=== PATIENT | male | born 1960 | race Caucasian/White ===

== ENCOUNTER → 2017-06-24 | Outpatient (CLI) | payer OTHER ==
[~2017-06-24] MED LIST: DLC5 PO; LIDO5DIS10 TOP; OXYC-57 PO
[2017-06-24 17:45] LABS: BASO % 0.6 %; BASO ABS # 0.03 K/uL (0-0.2); EOS % 1.9 %; EOS ABS # 0.09 K/uL (0-0.5); HEMOGLOBIN 14.8 g/dL (14.0-18.0); LYMPH % 37.6 %; LYMPH ABS # 1.81 K/uL (1.2-3.4); MEAN CORPUSCULAR HGB CONC 34.4 g/dl (32-36); MEAN PLATELET VOLUME 10.5 fL (7.4-10.4); MONO % 14.7 %; MONO ABS # 0.71 K/uL (0.11-0.59); NEUT % 45.2 %; NEUT ABS # 2.18 K/uL (1.4-6.5); PLATELET COUNT 152 K/uL (130-400); RED CELL DISTRIBUTION WIDTH CV 13.8 % (11.5-14.5); RED CELL DISTRIBUTION WIDTH SD 43.9 fL (36.4-46.3); WHITE BLOOD COUNT 4.82 K/uL (4.8-10.8)
[2017-06-24 17:53] LABS: PTT PATIENT 25.7 SECONDS (21.0-31.0)
[2017-06-24 18:14] LABS: BLOOD UREA NITROGEN 24 mg/dl (7-18); CALCIUM 8.6 mg/dl (8.5-10.1); CARBON DIOXIDE 29 mmol/L (21-32); CREATININE 1.05 mg/dl (0.60-1.40); GLUCOSE 97 mg/dl (70-99); POTASSIUM 3.9 mmol/L (3.5-5.1); SODIUM 140 mmol/L (136-145)
--- NOTE | 2017-06-24 18:23 | DIAGNOSTIC IMAGING REPORT ---
CHEST 2 VIEWS ROUTINE CLINICAL HISTORY: 57 years-old Male presenting with PRE OP TESTING,WENT TO LAB FIRST, SEND TO [facility]. TECHNIQUE: PA and lateral views of the chest were obtained. COMPARISON: 02/11/2009. FINDINGS: Cardiomediastinal silhouette normal. Lungs and pleural spaces clear. Apparent nodular opacity at the right apex may relate to rib shadows. Degenerative changes of the thoracic spine. Old right rib fractures suspected. Degenerative changes of the bilateral acromioclavicular joints. Upper abdomen normal. IMPRESSION: 1. Apparent opacity at the right apex likely relates to a rib shadow. No convincing evidence of acute cardiopulmonary disease. Electronically signed by: Maikel López M.D. 06/24/2017 6:22 PM Dictated Date/Time: 06/24/2017 6:20 PM
== END | disposition home or self-care (01) ==
LOC: C.LAB 16:59
PROVIDERS: ATTEND Orthopaedic Surgery Orthopaedic Surgery of the Spine
DX: Z01.818 Encounter for other preprocedural examination (principal)

== ENCOUNTER 2017-07-12 05:27 | Inpatient (IN) | payer OTHER ==
--- NOTE | 2017-07-11 11:58 | HISTORY & PHYSICAL EXAMINATION ---
DATE OF ADMISSION: 07/12/2017 He is being scheduled for a laminectomy and fusion at L4-L5 and L5-S1. HISTORY OF PRESENT ILLNESS: Mr. Raza is a pleasant gentleman. He is 57. He is compromised. He has weakness with dorsiflexion. He has weakness of plantarflexion. He is weak in the right hand side. He has pain with percussion. He has a progressive neurological deficit in a pretty impressive MRI scan with stenosis at L4 to the sacrum with his spondylolisthesis. He has failed conservative care plus his progress neurologically. PAST MEDICAL HISTORY: Negative for asthma or wheezing. No anxiety or stroke. No angina or heart disease. No diabetes or thyroid issues. Arthritis and low back pain. SOCIAL HISTORY: Nonsmoker. Non-ET[employer] user. PAST SURGICAL HISTORY: No past surgeries. ALLERGIES: No allergies. MEDICATIONS: for Cholesterol. REVIEW OF SYSTEMS: He denies blurred vision, double vision, tinnitus, or vertigo. Denies chest pain, palpitations, or angina. No asthma, wheezing, or shortness of breath. No nausea or vomiting. No loss of bowel or bladder function. Major complaint and review is musculoskeletal back and lower extremity difficulty, paresthesias, and weakness, progressive. PHYSICAL EXAMINATION: VITAL SIGNS: Blood pressure 130/80, pulse of 80, and afebrile. GENERAL: He is alert and oriented. Mentation is normal. CARDIAC: Normal S1 and S2. No S3. LUNGS: Clear. ABDOMEN: Soft and nontender. No masses or organomegaly. EXTREMITIES: He does have weakness with dorsiflexion. He has weakness with his plantar flexion and quadriceps. MRI demonstrates stenosis and spondylolisthesis. PLAN: Includes a laminectomy and fusion at L4-L5 and L5-S1, lumbar spine. [facility]
[2017-07-12] VITALS (9 sets, daily range): BP systolic 103–168; BP diastolic 62–84; PULSE 74–102; TEMP 36.4–36.8; O2SAT 94–98; Ht 177.8 cm; Wt 95.5 kg
[~2017-07-12] VITALS: Ht 177.8 cm; Wt 95.5 kg
[~2017-07-12 05:27] MED LIST changes: +ASPCH81X PO; -DLC5 PO; -LIDO5DIS10 TOP; +NAPR-1169 PO; -OXYC-57 PO; +SIMV40TA2 PO
[2017-07-12] MEDS ORDERED: CEFAZOLIN 2000MG IV PUSH 15 ML IV SCH (06:00)
[2017-07-12] MEDS ORDERED: NSS 1000ML IV SCH (06:00)
[2017-07-12] MEDS ORDERED: LACTATED RINGER'S 1000ML 1,000 ML IV SCH (06:00)
[2017-07-12] MEDS ORDERED: ACETAMINOPHEN IV 100 ML IV SCH (06:00)
[2017-07-12] MEDS ORDERED: LIDOCAINE HCL 2% 2 ML VIAL (20MG/ML) ONE (06:18)
[2017-07-12] MEDS ORDERED: MIDAZOLAM HCL 1 MG/ML 2ML VIAL ONE (06:19)
[2017-07-12] MEDS ORDERED: PROPOFOL IV EMULSION 10 MG/ML 20 ML VIAL IV ONE (06:19)
[2017-07-12] MEDS ORDERED: FENTANYL CITRATE INJ 50 MCG/1 ML 2 ML VIAL ONE ×2 (06:21→07:52)
[2017-07-12] MEDS ORDERED: ROCURONIUM BROMIDE 10 MG/ML 5 ML VIAL IV ONE ×3 (06:36→09:14)
[2017-07-12] MEDS ORDERED: NEOSTIGMINE METHYLSULFATE 5 MG/5 ML SYR ONE (06:36)
[2017-07-12] MEDS ORDERED: GLYCOPYRROLATE INJ 0.2 MG/ML VIAL ONE (06:38)
[2017-07-12] MEDS ORDERED: ONDANSETRON INJ 2 MG/ML 2 ML VIAL ONE (06:38)
[2017-07-12] MEDS ORDERED: DEXAMETHASONE SOD INJ 4 MG/ML VIAL ONE (06:38)
[2017-07-12] MEDS ORDERED: THROMBIN FOR SOLN 20000 UNIT KIT ONE (07:00)
[2017-07-12] MEDS ORDERED: GELATIN SPONGE SZ 100 ONE ×2 (07:00→09:44)
[2017-07-12] MEDS ORDERED: BACITRACIN 50000 UNIT VIAL ONE (07:01)
[2017-07-12] MEDS ORDERED: BUPIVACAINE/EPINEPHRINE 0.5% MPF 1:200,000 30 ML VIAL ONE (07:01)
[2017-07-12] MEDS ORDERED: VANCOMYCIN HCL 1000MG/20ML VIAL ONE (07:07)
--- NOTE | 2017-07-12 07:10 | History & Physical Bridge Note ---
H&P Re-Evaluation Bridge Note: I have examined the patient, reviewed the History & Physical and in the interval since the performance of the History & Physical I have noted the following changes of clinical significance: No changes noted
[2017-07-12] MEDS ORDERED: EpHEDrine SULFATE 50MG/5ML SYR ONE (07:45)
[2017-07-12] MEDS ORDERED: ATROPINE SULFATE 0.1 MG/ML 5ML SYR IV PRN (08:30)
[2017-07-12] MEDS ORDERED: FENTANYL CITRATE INJ 50 MCG/1 ML 2 ML VIAL IV PRN (08:30)
[2017-07-12] MEDS ORDERED: ONDANSETRON INJ 2 MG/ML 2 ML VIAL IV PRN ×2 (08:30→11:00)
[2017-07-12] MEDS ORDERED: EpHEDrine SULFATE INJ 50 MG/ML AMP IV PRN (08:30)
[2017-07-12] MEDS ORDERED: HYDROmorphone INJ 1 MG/ML SYR IV PRN (08:30)
--- NOTE | 2017-07-12 10:35 | DIAGNOSTIC IMAGING REPORT ---
LUMBAR SPINE, INTRAOPERATIVE FLUOROSCOPY HISTORY: L4 S1 laminectomy and fusion. FLUOROSCOPY TIME: 12 seconds. FINDINGS: Intraoperative fluoroscopy was provided for the lumbar spine. A single fluoroscopic spot image. Posterior decompression and fusion from L4 through S1 with pedicle screws. Skin retractors are identified . The hardware appears intact. IMPRESSION: Fluoroscopy provided for a posterior decompression and fusion from L4 through S1.. Electronically signed by: Collin Mckee M.D. 07/12/2017 10:34 AM Dictated Date/Time: 07/12/2017 10:33 AM
--- NOTE | 2017-07-12 10:45 | [facility] Post Operative Brief Note ---
Immediate Operative Summary Operative Date Jul 12, 2017. Pre-Operative Diagnosis Lumber stenosis and spondylolisthesis Post-Operative Diagnosis Lumber stenosis and spondylolisthesis Procedure(s) Performed L4-L5, L5-S1 Laminectomy and Fusion, Placement of Interbody at L5-S1 Surgeon Dr. Garcia Calciner Operator Helper Surgeon(s) Jose Alejandro Bhatia PA-C Estimated Blood Loss 750ml Findings Consistent with Post-Op Diagnosis Specimens None per surgeon Drains hemovac Anesthesia Type General Complication(s) none Disposition Disposition: Recovery Room / PACU
[2017-07-12] MEDS ORDERED: SODIUM CHLORIDE 0.9% 1000ML 1,000 ML IV SCH (10:52)
[2017-07-12] MEDS ORDERED: HYDROmorphone HCL 0.5MG/ML 50 ML CASSETTE ONE (11:00)
[2017-07-12] MEDS ORDERED: LORAZEPAM 1 MG TAB PO PRN (11:00)
[2017-07-12] MEDS ORDERED: METOCLOPRAMIDE HCL INJ 5 MG/ML 2 ML VIAL IV PRN (11:00)
[2017-07-12] MEDS ORDERED: MAGNESIUM HYDROXIDE SUSP 30 ML UDC PO PRN (11:00)
[2017-07-12] MEDS ORDERED: ACETAMINOPHEN 325 MG TAB PO PRN (11:00)
[2017-07-12] MEDS ORDERED: NALOXONE HCL 0.4 MG/1 ML VIAL/CARP IV PRN (11:00)
[2017-07-12] MEDS ORDERED: LORAZEPAM INJ 1 MG in SYRINGE 0 ML IV PRN (11:00)
[2017-07-12] MEDS ORDERED: PROMETHAZINE HCL INJ 12.5 MG in SODIUM CHLORIDE 0.9% 50ML 50 ML IV PRN (11:00)
--- NOTE | 2017-07-12 11:11 | OPERATIVE REPORT ---
DATE OF OPERATION: 07/12/2017 PREOPERATIVE DIAGNOSES: Grade 2 spondylolisthesis of the spine, severe spinal stenosis, L4, L5, S1. POSTOPERATIVE DIAGNOSES: Same. SURGEON: Dr. Garcia. SUPERINTENDENT OVERHEAD DISTRIBUTION: Jose Alejandro Bhatia PA-C. PROCEDURE: 1. Include a laminectomy L4, L5 and S1, foraminotomy, partial facetectomy with a 3-level laminectomy procedure. 2. Pedicle screw instrumentation - L4, L5 and sacrum. 3. Posterior lateral fusion L4, L5 and sacrum. 4. Posterior lumbar interbody fusion. COMPLICATIONS: Zero. BLOOD LOSS: 750. IMPLANTS USED: By the [employer]. DESCRIPTION OF PROCEDURE: The patient was taken to the operating room, a general intubated, anesthetic provided to the patient, placed prone, scrubbed, prepped and draped sterile. We made a skin incision, fascial incision, dissecting soft tissue put in a deep self-retaining retractor exposing the posterior elements. I was out laterally to the transverse processes and the sacral ala. We did a midline laminectomy starting at L5-S1 region all the way up to L4 taking lamina L1, L5, L4, L3 levels of the lumbar spine. We carefully dissected the nerve roots free using various techniques using various sized rongeurs. I was pleased with the nerve decompression. We then safely instrumented the spine using anatomic landmarks plus C-arm guidance safely getting pedicle screws into L4, L5, S1 on left and L4, L5, S1 on the right. We also then went on to a posterior lumbar interbody fusion. We dissected the nerve root free at L5-S1. We were able to get into the interspace at L5-S1. We settled on an 88 mm height and cage 10 mm in length. This was packed with autograft. We then used a combination of autograft and allograft out over the transverse processes completing the 360 degree fusion. A longitudinal charlene was connected to each of the screws, locked carefully. We irrigated thoroughly, closed in layers over vancomycin powder, which will be called vancomycin powder and a staple gun on the skin, sterile dressing applied. Skin anesthetized, the patient was safely brought supine, extubated to PACU stable. No apparent complications. Sponge and needle count correct at the close. I attest to the content of the Intraoperative Record and any orders documented therein. Any exception s are noted below.
[2017-07-12 11:24] LABS: HEMATOCRIT 39.3 % (42-52); HEMOGLOBIN 13.4 g/dL (14.0-18.0)
--- NOTE | 2017-07-12 11:52 | Anesthesiology Progress Note ---
Anesthesia Post Op Note Date & Time Jul 12, 2017 at 11:52 Vital Signs Pain Intensity: 2 Vital Signs Past 12 Hours Date Time Temp Pulse Resp B/P (MAP) Pulse Ox O2 Delivery O2 Flow Rate FiO2 07/12/17 11:45 85 12 120/61 98 Nasal Cannula 3 07/12/17 11:35 36.6 84 12 114/69 98 Nasal Cannula 3 07/12/17 11:25 81 20 104/65 97 Nasal Cannula 3 07/12/17 11:15 74 21 128/72 99 Oxymask 10 07/12/17 11:05 73 16 113/73 99 Oxymask 10 07/12/17 10:55 36.0 64 20 119/62 100 Oxymask 10 07/12/17 05:51 36.8 76 20 168/84 95 Room Air Notes Mental Status: alert / awake / arousable, participated in evaluation Pt Amnestic to Procedure: Yes Nausea / Vomiting: adequately controlled Pain: adequately controlled Airway Patency, RR, SpO2: stable & adequate BP & HR: stable & adequate Hydration State: stable & adequate Anesthetic Complications: no major complications apparent
[2017-07-12] MEDS: SODIUM CHLORIDE 0.9% 1000ML 1,000 ML IV SCH ×2 (12:27→23:53)
[2017-07-12] MEDS: KETOROLAC TROMETHAMINE 30 MG/ML VIAL IV. SCH ×3 (14:23→23:51)
[2017-07-12] MEDS: DEXAMETHASONE INJ 10 MG in SYRINGE 0 ML IV SCH ×2 (14:24→21:34)
[2017-07-12] MEDS: HYDROmorphone HCL 0.5MG/ML 50 ML CASSETTE IV PRN ×2 (15:12→23:06)
[2017-07-12] MEDS: CEFAZOLIN IV 2,000 MG in SYRINGE 0 ML IV SCH ×2 (15:51→23:51)
[2017-07-12] MEDS: SIMVASTATIN 40 MG TAB PO SCH (20:28)
[2017-07-13 03:38] VITALS: BP 108/67; PULSE 84; TEMP 36.7; O2SAT 97
[2017-07-13] MEDS: DEXAMETHASONE INJ 10 MG in SYRINGE 0 ML IV SCH ×3 (05:58→21:16)
[2017-07-13] MEDS: KETOROLAC TROMETHAMINE 30 MG/ML VIAL IV. SCH ×3 (05:58→17:37)
[2017-07-13] MEDS ORDERED: DC PCA SCH (06:00)
[2017-07-13] MEDS ORDERED: HYDROmorphone INJ 1 MG/ML SYR IV PRN (06:00)
[2017-07-13] MEDS ORDERED: HYDROmorphone INJ 2 MG/ML SYR/VIAL IV PRN (06:00)
[2017-07-13] MEDS ORDERED: BISACODYL 5 MG TABEC PO PRN (06:00)
[2017-07-13] MEDS ORDERED: NURSING DECISION MEDICATION ORDER SCH (06:00)
[2017-07-13] MEDS ORDERED: BISACODYL 10 MG SUPP PR PRN (06:00)
[2017-07-13 07:39] VITALS: BP 116/72; PULSE 84; TEMP 36.5; O2SAT 91
--- NOTE | 2017-07-13 07:59 | Anesthesiology Progress Note ---
Anesthesia Post Op Note Date & Time Jul 13, 2017 at 07:59 Vital Signs Pain Intensity: 0.0 Vital Signs Past 12 Hours Date Time Temp Pulse Resp B/P (MAP) Pulse Ox O2 Delivery O2 Flow Rate FiO2 07/13/17 07:39 36.5 84 16 116/72 (87) 91 Room Air 07/13/17 07:15 Room Air 07/13/17 03:38 36.7 84 16 108/67 (81) 97 Room Air 07/12/17 23:55 Room Air 07/12/17 23:04 36.5 78 15 108/62 (77) 95 Room Air Notes Mental Status: alert / awake / arousable, participated in evaluation Pt Amnestic to Procedure: Yes Nausea / Vomiting: adequately controlled Pain: adequately controlled Airway Patency, RR, SpO2: stable & adequate BP & HR: stable & adequate Hydration State: stable & adequate Anesthetic Complications: no major complications apparent
[2017-07-13] MEDS ORDERED: OXYCODONE/ACETAMINOPHEN 5-325 TAB PO PRN ×2 (08:00)
[2017-07-13] MEDS: CEFAZOLIN IV 2,000 MG in SYRINGE 0 ML IV SCH (08:46)
[2017-07-13] MEDS: POLYETHYLENE (MIRALAX) 17 GM PACK PO SCH (08:47)
[2017-07-13] MEDS: ASPIRIN 81 MG ECTAB PO SCH (08:47)
[2017-07-13 09:43] VITALS: BP 128/69; PULSE 97; O2SAT 93
[2017-07-13 11:31] VITALS: BP 136/71; PULSE 84; TEMP 36.5; O2SAT 95
[2017-07-13 15:13] VITALS: BP 136/65; PULSE 100; TEMP 37.1; O2SAT 93
[2017-07-13] MEDS: SIMVASTATIN 40 MG TAB PO SCH (21:16)
[2017-07-13 23:36] VITALS: BP 131/61; PULSE 85; TEMP 36.9; O2SAT 94
--- NOTE | 2017-07-14 07:02 | Discharge Instructions ---
Discharge Instructions Date of Service Jul 14, 2017. Admission Reason for Admission: Spinal Stenosis Discharge Discharge Diagnosis / Problem: same Discharge Goals Goal(s): Improve function Activity Recommendations Activity Limitations: as noted below Lifting Limitations: no more than 5 pounds Exercise/Sports Limitations: none May Resume Sexual Activity: after follow-up appointment Shower/Bathe: keep incision dry Driving or Machine Use: home, rest, recover . Instructions / Follow-Up Instructions / Follow-Up MEDICATIONS: Please take your prescriptions as instructed at your pre-op appointment. SPECIAL CARE: The following information is intended to answer some of the common questions and concerns regarding your surgery. Each patient is an individual and receives individual counselling throughout the course of treatment, from diagnosis to surgery all the way through recovery. What follows is not an exhaustive list, but should be a useful guide to some of the common questions and concerns patients have regarding their surgeries. These are not provided to keep you from calling us; rather, they give you something accurate and concrete to reference as you recover from your procedure. If you need us, we are available to you. As always, if you are not sure about something, call us at [phone]. MEDICAL EMERGENCIES: For these conditions, call 911 or go to your local hospital-based Emergency Department - not [facility] or equivalent. * Paralysis * Severe chest pain or difficulty breathing * Swelling or redness of either leg Spine procedures can be rather complex and though complications are rare, they do occur. In such cases, effective advice regarding emergency situations cannot always be addressed over the telephone. You may be referred to the emergency department for more effective management of your problem. Activity Limitations: It is important to give your body time to heal, so please limit your activities : * In general, don't do anything that moves your spine too much. You should avoid contact sports, twisting or heavy lifting while you recover. * 5-10 pounds is all you should attempt to lift. * You should not plan on driving for approximately 3 weeks and you should avoid traveling more than 30-45 minutes at a time. Longer trips should be broken down with walking breaks spaced appropriately. * Physical therapy is not usually required. * Walking and good posture practices will help you recover and regain your function. * Avoid straining or sudden changes in position. * In general, the goal is to take it easy and recover. Don't cause any new problems. Just relax. Showers: * Do not take a bath, use a Jacuzzi or hot tub or otherwise submerge your incision. * It is usually safe to take a shower 4-5 days after your surgery. * Your incision does not require any special creams or ointments. * Simply clean it with soap and water, dry and re-dress with a clean bandage afterwards. Incision: * Keep incision clean, dry and protected until your first follow-up appointment. * Some amount of drainage and redness is normal. Any drainage should be fairly clear and not have a foul odor. * If you feel anything is wrong or you have excessive drainage, please call us. * Your stitches and bina will be removed 10-14 days after your surgery. At the time of your first post-op visit. * Neck surgeries are typically closed with a suture underneath the skin. The steri-strips over the incision should be maintained until we see you in the office. Bracing: * You may be provided with a back or neck brace to encourage good posture and prevent injury. It will remind you not to do too much as you heal and will alert others to the fact that you have had a surgery. * Back braces may be removed for showers and when you are resting at home. They must be worn when you are walking around for any period of time or for travel. * For neck surgery, you will likely be provided with two cervical collars. The soft collar ([place] or foam rubber) is worn most commonly throughout the day and while sleeping. The plastic collar (provided at the hospital) is for showering/bathing. * Except while eating, collars should remain in place. More specifically, bracing is provided for a purpose and should be worn. * Please obtain your brace or collars prior to your operation and bring them to the hospital with you on the day of surgery. * You should also bring your collars to your post-op appointment with Dr. Garcia. You should always take good care of your body and practice healthy habits, especially following surgery. You should: * Follow your doctor's treatment plan * Sit and stand properly with good posture (ears over shoulders, shoulders over hips) Don't slouch * Learn to lift correctly * Exercise regularly (low-impact aerobic exercise is especially good, but check with your doctor first) * Generally, be up and walking for 5-10 minutes at a time at least 3-4 times per day from the day you get home * Increasing walking to tolerance until you can walk for 20-30 minutes at a time * Attain and maintain a healthy body weight * Eat healthy foods ( a well-balanced, low-fat diet rich in fruits and vegetables) and get enough calcium * Avoid excessive use of alcohol When to call our office - If you notice any of the following: * Increased pain not relieve by pain medicine * Fevers greater then 100 degrees F, chills or flu symptoms * Increased redness around incision * Drainage from the incision that is not clear * Any foul smelling drainage * Swelling or fluid collection beneath the skin Miscellaneous: * In the hospital, you may be given a walker or cane for support while walking. These are temporary needs and are intended to prevent injuries due to falls. You may discontinue them when you feel strong and steady enough on your feet. * Sleep in a comfortable position. We find that many patients find a lounge chair or recliner with several pillows to be beneficial in the early post-operative period. * The support stockings should be used for 7-10 days and may be discontinued when you are back to walking more and conducting usual household activities. No problem is insignificant. We are here to help you and get you well. Contact us at [phone]. Definitions: Foraminotomy: If part of the disc or a bone spur (osteophyte) is pressing on a nerve as it leaves the vertebra (through an exit called the foramen), a foraminotomy may be done. Otomy means "to make an opening." A foraminotomy is making the opening of the foramen larger, so the nerve can exit without being compressed. Laminotomy: Similar to the foraminotomy, a laminotomy makes a larger opening, this time in your bony plate protecting your spinal canal and spinal cord (the lamina). The lamina may be pressing on your nerve, so the surgeon may make more room for the nerves using a laminotomy. Laminectomy: Sometimes, a laminotomy is not sufficient. The surgeon may need to remove all or part of the lamina. This procedure is called a laminectomy. This can often be done at many levels without any harmful effects. Current Hospital Diet Patient's current hospital diet: Regular Diet Discharge Diet Recommended Diet: Regular Diet Procedures Procedures Performed: L4-L5, L5-S1 Laminectomy and Fusion, Placement of Interbody at L5-S1 Pending Studies Studies pending at discharge: no Medical Emergencies . Who to Call and When: Medical Emergencies: If at any time you feel your situation is an emergency, please call 911 immediately. . Non-Emergent Contact Non-Emergency issues call your: Primary Care Provider . "Provider Documentation" section prepared by Andreas Garcia. .
[2017-07-14 07:03] VITALS: BP 147/76; PULSE 83; TEMP 36.8; O2SAT 95
--- NOTE | 2017-07-14 07:53 | DISCHARGE SUMMARY ---
SUBJECTIVE: He is alert, oriented, no chest pain, shortness of breath, no calf tenderness. Some lumbar spine difficulty. OBJECTIVE: Vital signs stable, afebrile. Hemoglobin 13.4. Wound clean. ASSESSMENT: Status post lumbar spine decompression and fusion, multiple levels fairly complex surgery performed 2 days ago. DISPOSITION: We will get him home later on today with dressing changed. He has prescriptions at home for pain. He did not request a walker for support. We will change his dressing approximately every 48 hours and he has a followup appointment.
[2017-07-14] MEDS: ASPIRIN 81 MG ECTAB PO SCH (08:54)
[2017-07-14] MEDS: POLYETHYLENE (MIRALAX) 17 GM PACK PO SCH (08:54)
[2017-07-14 09:20] VITALS: BP 147/76; PULSE 83; TEMP 36.8; O2SAT 95
== END 2017-07-14 11:55 | disposition home or self-care (01) | DRG 455 ==
LOC: C.ACU 05:27 → C.3E 10:56 → ENRESERV 11:25
PROVIDERS: ADMIT Orthopaedic Surgery Orthopaedic Surgery of the Spine; ATTEND Orthopaedic Surgery Orthopaedic Surgery of the Spine
PROC: 0SG0071 Fusion of Lumbar Vertebral Joint with Autologous Tissue Substitute, Posterior Approach, Posterior Column, Open Approach (ICD-10-PCS; principal; 2017-07-12 07:15)
PROC: 0SG30AJ Fusion of Lumbosacral Joint with Interbody Fusion Device, Posterior Approach, Anterior Column, Open Approach (ICD-10-PCS; principal; 2017-07-12 07:15)
PROC: 0SG3071 Fusion of Lumbosacral Joint with Autologous Tissue Substitute, Posterior Approach, Posterior Column, Open Approach (ICD-10-PCS; principal; 2017-07-12 07:15)
DX: M48.061 Spinal stenosis, lumbar region without neurogenic claudication (principal); M43.16 Spondylolisthesis, lumbar region; Z79.899 Other long term (current) drug therapy

== ENCOUNTER 2017-07-18 14:44 | Emergency (ER) | payer OTHER ==
[~2017-07-18] VITALS: Ht 177.8 cm; Wt 101.4 kg
[2017-07-18 14:56] VITALS: TEMP 37.1; Ht 177.8 cm; Wt 101.4 kg
[2017-07-18] MEDS ORDERED: LORAZEPAM 2 MG/ML 1 ML VIAL IV STA (15:03)
[2017-07-18] MEDS ORDERED: SODIUM CHLORIDE 0.9% 1000ML 1,000 ML IV ONE (15:15)
[2017-07-18] MEDS ORDERED: MoRPHine SULFATE 4 MG/ML 1 ML CARP\\VIAL IV ONE (15:15)
[2017-07-18] MEDS ORDERED: OPTIRAY 320 IV PRN (15:15)
[2017-07-18 15:26] VITALS: O2SAT 96
[2017-07-18 15:26] LABS: BASO % 0.1 %; BASO ABS # 0.01 K/uL (0-0.2); EOS % 1.1 %; EOS ABS # 0.13 K/uL (0-0.5); HEMATOCRIT 33.1 % (42-52); HEMOGLOBIN 11.2 g/dL (14.0-18.0); IG# 0.06 K/uL (0.00-0.02); LYMPH % 11.2 %; MEAN CORPUSCULAR HEMOGLOBIN 29.8 pg (25-34); MEAN CORPUSCULAR HGB CONC 33.8 g/dl (32-36); MEAN PLATELET VOLUME 9.6 fL (7.4-10.4); MONO % 12.2 %; MONO ABS # 1.41 K/uL (0.11-0.59); NEUT % 74.9 %; NEUT ABS # 8.67 K/uL (1.4-6.5); PLATELET COUNT 186 K/uL (130-400); RED CELL DISTRIBUTION WIDTH SD 45.1 fL (36.4-46.3); WHITE BLOOD COUNT 11.58 K/uL (4.8-10.8)
--- NOTE | 2017-07-18 15:41 | DIAGNOSTIC IMAGING REPORT ---
CHEST ONE VIEW PORTABLE CLINICAL HISTORY: 57 years-old Male presenting with SOB after surgery. TECHNIQUE: Portable upright AP view of the chest was obtained. COMPARISON: 06/24/2017. FINDINGS: Atherosclerosis of the aortic arch. Cardiac silhouette top normal in size. Previously suggested opacity at the right upper lobe not immediately apparent. Lungs and pleural spaces clear. Multiple old fracture deformities on the right noted. Degenerative changes of the bilateral acromioclavicular joints. Degenerative changes of the thoracic spine. Upper abdomen normal. IMPRESSION: 1. No acute cardiopulmonary disease. Electronically signed by: Maikel López M.D. 07/18/2017 3:40 PM Dictated Date/Time: 07/18/2017 3:39 PM
[2017-07-18 15:45] LABS: ALBUMIN 3.1 gm/dl (3.4-5.0); CALCIUM 8.3 mg/dl (8.5-10.1); CREATININE 0.91 mg/dl (0.60-1.40); POTASSIUM 4.3 mmol/L (3.5-5.1); PTT PATIENT 25.4 SECONDS (21.0-31.0)
[2017-07-18 15:48] LABS: TOTAL PROTEIN 6.6 gm/dl (6.4-8.2)
--- NOTE | 2017-07-18 16:33 | DIAGNOSTIC IMAGING REPORT ---
(CHEST FOR PE) ANGIO WITH CLINICAL HISTORY: 57 years-old Male presenting with ^SOB after surgery. TECHNIQUE: Multidetector CT angiography of the chest was performed after administration of intravenous contrast. 3-D volumetric and/or maximum intensity projection (MIP) images were subsequently reconstructed for review. IV contrast: 92 mL of Optiray 320. A dose lowering technique was used consistent with the principles of ALARA (as low as reasonably achievable). COMPARISON: 02/10/2009. Of the CT DOSE (mGy.cm): The estimated cumulative dose is 496.54 mGy.cm. FINDINGS: Image quality is degraded by streak artifact arising from positioning of the arms. Distiller topogram: Unremarkable. Pulmonary vasculature: The study is suboptimal for the assessment of the pulmonary vascular tree secondary to timing of the contrast bolus and respiratory motion artifact. Allowing for limited image quality, no central filling defect to suggest pulmonary embolus. Main pulmonary artery is not enlarged. No flattening of the interventricular septum. No intracardiac filling defect. No reflux of contrast into the hepatic veins. Remaining chest: On soft tissue windows, normal thyroid and thoracic inlet. No axillary, supraclavicular, hilar, or mediastinal lymphadenopathy. Atherosclerosis of the aorta. Normal heart size. No pericardial or pleural effusion. Upper abdomen normal. On lung windows, minimal dependent changes likely atelectasis. No other focal nodule or infiltrate. Airways patent. On bone windows, old fracture deformities of several right ribs. Degenerative changes of the spine. IMPRESSION: 1. Allowing for suboptimal image quality, no evidence of pulmonary embolus. No acute intrathoracic pathology. 2. Dependent atelectasis. Electronically signed by: Maikel López M.D. 07/18/2017 4:32 PM Dictated Date/Time: 07/18/2017 4:27 PM
[2017-07-18] MEDS ORDERED: ATIVAN 1MG HOMEPACK PO ONE (17:30)
[2017-07-18 17:50] VITALS: BP 158/83; PULSE 92; O2SAT 98
--- NOTE | 2017-07-18 18:58 | EMERGENCY ROOM VISIT NOTE ---
History First contact with patient: 14:58 Chief Complaint: SHORTNESS OF BREATH Stated Complaint: TROUBLE BREATHING, HICKUPS SINCE WEDNESDAY Nursing Triage Summary: pt to the eD with c/o SOB since surgery this past week no cough no cold no c/o pain History of Present Illness The patient is a 57 year old male who presents to the Emergency Room with complaints of difficulty breathing and hiccups for the past 4 days. The patient has not had fever, chills, coughing, or wheezing. He does not report distinct pain. He did have back surgery performed about 6 days ago, and is not complaining of any complications of this. He does not have a history of DVT or PE. Position and activity does not appear to improve or worsen his symptoms. He rates his overall discomfort a 5/10. Review of Systems More than 10 systems were reviewed and otherwise negative with the exception of history of present illness. Past Medical/Surgical History Medical Problems: (1) Lumbar stenosis Family History No pertinent family history Social History Smoking Status: Never Smoker Current/Historical Medications Scheduled Aspirin (Aspirin Chewable), 81 MG PO QAM Naproxen (Naprosyn), 500 MG PO BID Simvastatin (Zocor), 40 MG PO QPM Physical Exam Vital Signs Date Time Temp Pulse Resp B/P (MAP) Pulse Ox O2 Delivery O2 Flow Rate FiO2 07/18/17 17:50 92 158/83 98 07/18/17 16:23 96 18 159/75 95 Room Air 07/18/17 15:26 96 Room Air 07/18/17 15:18 98 07/18/17 14:56 37.1 112 24 161/80 94 Room Air Physical Exam VITALS: Vitals are noted on the nurse's note and reviewed by myself. Vital signs stable. GENERAL: Well-developed, well-nourished, white male, who is in no acute distress and resting comfortably. Patient is with persistent hiccups. NECK: Supple without nuchal rigidity. No lymphadenopathy. No thyromegaly. Cervical spine is nontender. HEART: Regular rate and rhythm without murmurs gallops or rubs. LUNGS: Clear to auscultation bilaterally without wheezes, rales or rhonchi. No retractions or accessory muscle use. ABDOMEN: Positive normal bowel sounds x 4. Soft, nontender, without masses or organomegaly. No guarding or rebound tenderness. MUSCULOSKELETAL: No muscle atrophy, erythema, or edema noted. Full range of motion in all extremities. There is a vertical well-healing surgical incision in the lower lumbar spine distribution. No drainage or discharge noted. No fluctuance or evidence of infection. No saddle paresthesias. NEURO: Patient was alert and oriented to person place and time. CN II through XII grossly intact. No focal neurological deficits Medical Decision & Procedures ER Provider Diagnostic Interpretation: CHEST ONE VIEW PORTABLE CLINICAL HISTORY: 57 years-old Male presenting with SOB after surgery. TECHNIQUE: Portable upright AP view of the chest was obtained. COMPARISON: 06/24/2017. FINDINGS: Atherosclerosis of the aortic arch. Cardiac silhouette top normal in size. Previously suggested opacity at the right upper lobe not immediately apparent. Lungs and pleural spaces clear. Multiple old fracture deformities on the right noted. Degenerative changes of the bilateral acromioclavicular joints. Degenerative changes of the thoracic spine. Upper abdomen normal. IMPRESSION: 1. No acute cardiopulmonary disease. (CHEST FOR PE) ANGIO WITH CLINICAL HISTORY: 57 years-old Male presenting with ^SOB after surgery. TECHNIQUE: Multidetector CT angiography of the chest was performed after administration of intravenous contrast. 3-D volumetric and/or maximum intensity projection (MIP) images were subsequently reconstructed for review. IV contrast: 92 mL of Optiray 320. A dose lowering technique was used consistent with the principles of ALARA (as low as reasonably achievable). COMPARISON: 02/10/2009. Of the CT DOSE (mGy.cm): The estimated cumulative dose is 496.54 mGy.cm. FINDINGS: Image quality is degraded by streak artifact arising from positioning of the arms. Airline Hostess topogram: Unremarkable. Pulmonary vasculature: The study is suboptimal for the assessment of the pulmonary vascular tree secondary to timing of the contrast bolus and respiratory motion artifact. Allowing for limited image quality, no central filling defect to suggest pulmonary embolus. Main pulmonary artery is not enlarged. No flattening of the interventricular septum. No intracardiac filling defect. No reflux of contrast into the hepatic veins. Remaining chest: On soft tissue windows, normal thyroid and thoracic inlet. No axillary, supraclavicular, hilar, or mediastinal lymphadenopathy. Atherosclerosis of the aorta. Normal heart size. No pericardial or pleural effusion. Upper abdomen normal. On lung windows, minimal dependent changes likely atelectasis. No other focal nodule or infiltrate. Airways patent. On bone windows, old fracture deformities of several right ribs. Degenerative changes of the spine. IMPRESSION: 1. Allowing for suboptimal image quality, no evidence of pulmonary embolus. No acute intrathoracic pathology. 2. Dependent atelectasis. Laboratory Results 07/18/17 15:15 Red Blood Count 3.76, Mean Corpuscular Volume 88.0, Mean Corpuscular Hemoglobin 29.8, Mean Corpuscular Hemoglobin Concent 33.8, Mean Platelet Volume 9.6, Neutrophils (%) (Auto) 74.9, Lymphocytes (%) (Auto) 11.2, Monocytes (%) (Auto) 12.2, Eosinophils (%) (Auto) 1.1, Basophils (%) (Auto) 0.1, Neutrophils # (Auto ) 8.67, Lymphocytes # (Auto) 1.30, Monocytes # (Auto) 1.41, Eosinophils # (Auto ) 0.13, Basophils # (Auto) 0.01 07/18/17 15:15 Test 07/18/17 15:15 07/18/17 15:20 White Blood Count 11.58 K/uL (4.8-10.8) Red Blood Count 3.76 M/uL (4.7-6.1) Hemoglobin 11.2 g/dL (14.0-18.0) Hematocrit 33.1 % (42-52) Mean Corpuscular Volume 88.0 fL (80-100) Mean Corpuscular Hemoglobin 29.8 pg (25-34) Mean Corpuscular Hemoglobin Concent 33.8 g/dl (32-36) Platelet Count 186 K/uL (130-400) Mean Platelet Volume 9.6 fL (7.4-10.4) Neutrophils (%) (Auto) 74.9 % Lymphocytes (%) (Auto) 11.2 % Monocytes (%) (Auto) 12.2 % Eosinophils (%) (Auto) 1.1 % Basophils (%) (Auto) 0.1 % Neutrophils # (Auto) 8.67 K/uL (1.4-6.5) Lymphocytes # (Auto) 1.30 K/uL (1.2-3.4) Monocytes # (Auto) 1.41 K/uL (0.11-0.59) Eosinophils # (Auto) 0.13 K/uL (0-0.5) Basophils # (Auto) 0.01 K/uL (0-0.2) RDW Standard Deviation 45.1 fL (36.4-46.3) RDW Coefficient of Variation 14.0 % (11.5-14.5) Immature Granulocyte % (Auto) 0.5 % Immature Granulocyte # (Auto) 0.06 K/uL (0.00-0.02) Prothrombin Time 10.5 SECONDS (9.0-12.0) Prothromb Time International Ratio 1.0 (0.9-1.1) Activated Partial Thromboplast Time 25.4 SECONDS (21.0-31.0) Partial Thromboplastin Ratio 1.0 Anion Gap 4.0 mmol/L (3-11) Est Creatinine Clear Calc Drug Dose 104.3 ml/min Estimated GFR () 106.5 Estimated GFR (Non- 91.9 BUN/Creatinine Ratio 24.7 (10-20) Calcium Level 8.3 mg/dl (8.5-10.1) Total Bilirubin 0.4 mg/dl (0.2-1) Aspartate Amino Transf (AST/SGOT) 31 U/L (15-37) Alanine Aminotransferase (ALT/SGPT) 45 U/L (12-78) Alkaline Phosphatase 86 U/L (45-117) Total Protein 6.6 gm/dl (6.4-8.2) Albumin 3.1 gm/dl (3.4-5.0) Globulin 3.5 gm/dl (2.5-4.0) Albumin/Globulin Ratio 0.9 (0.9-2) Lipase 97 U/L (73-393) Bedside Troponin I < 0.030 ng/ml (0-0.045) Medications Administered Medications (Trade) Dose Ordered Sig/Saud Route Start Time Stop Time Status Last Admin Dose Admin Sodium Chloride 1,000 ml @ 999 mls/hr Q1H1M ONCE IV 07/18/17 15:15 07/18/17 16:15 DC 07/18/17 15:25 999 MLS/HR Morphine Sulfate (MoRPHine SULFATE INJ) 4 mg NOW ONCE IV 07/18/17 15:15 07/18/17 15:16 DC 07/18/17 15:25 4 MG Lorazepam (Ativan Inj) 1 mg NOW STAT IV 07/18/17 15:03 07/18/17 15:06 DC 07/18/17 15:25 1 MG Lorazepam (Ativan 1MG Home Pack) 1 homepack UD ONCE PO 07/18/17 17:30 07/18/17 17:31 DC 07/18/17 17:43 1 HOMEPACK ECG Per My Interpretation Change: Sinus tachycardia @103 bpm Possible Left atrial enlargement Nonspecific T wave abnormality ED Course Physical exam and history were performed. Nursing notes, EMR, and Medication List were personally reviewed. Patient appears to have persistent hiccups and intermittent shortness of breath for the past 4 days. The patient is not reporting pain such as chest pain, neck pain, shoulder pain, or back pain despite recently having surgery. He does not have extremity swelling to the lower extremities, nor does he have signs of cauda equina or spinal abscess on exam. EKG was performed and was sinus tachycardia without distinct ST elevation. IV access was established and labs are obtained. The patient was hydrated and medicated with a small amount of IV morphine and IV Ativan. Chest x-ray and CT scan were performed. Case was discussed with my attending physician who remained involved in care and decision-making. The patient's blood work is as above and was reviewed. He has a very minimally elevated white blood cell count of 11,000. He does not have a gross anemia or significant electrolyte imbalance. His troponin 1 is negative and he remained in normal sinus rhythm on the electronic device monitor. Chest x-ray was reviewed by myself and radiology as showing no acute process. Because of his recent surgery and reported symptoms I did elect to proceed with CT scan for PE, which thankfully does not show emboli or other distinct etiology of his symptoms. On repeat evaluation the patient was sleeping very comfortably in his ER bed. His hiccups had completely resolved after the Ativan and morphine. The patient and I had a lengthy discussion regarding options of care. I discussed the option of staying in the hospital, however the patient has a preference for going home, which appears reasonable. He does have a surgical follow-up in 5 days. I would like him to follow-up with his primary care physician in the next 1-2 days for a recheck. He will be given a home pack of Ativan to help with his hiccups return. He was otherwise invited back with any new, worsening , or concerning symptoms. He was pleased with this plan and voiced understanding. He was discharged home in the care of his who is acting as a transit mixer driver. The chart was completed utilizing [employer] Speech Voice Recognition Software. Grammatical errors, random word insertions, pronoun errors, and incomplete sentences are an occasional consequence of this system due to software limitations, ambient noise, and hardware issues. Any formal questions or concerns about the content, text, or information contained within the body of this dictation should be directly addressed to the provider for clarification. . Medical Decision Differential diagnosis includes, but is not limited to: Myocardial infarction, dysrhythmia, pericarditis, pneumothorax, aortic aneurysm/dissection, DVT/PE, anxiety, GERD, PUD, electrolyte imbalance, thyroid disorder, pneumonia, bronchitis, pancreatitis, and others Impression Primary Impression: Hiccups Additional Impression: Shortness of breath Departure Information Dispostion Home / Self-Care Condition GOOD Forms HOME CARE DOCUMENTATION FORM, IMPORTANT VISIT INFORMATION Patient Instructions My [facility] Additional Instructions You were seen and evaluated today on an emergency basis only. This is not a substitute for, or an effort to provide, complete comprehensive medical care. It is not possible to recognize and treat all injuries or illnesses in a single emergency department visit. For this reason it is recommended that you followup with your primary care physician on Wednesday or Wednesday for recheck of your condition. Keep your surgical follow up on Wednesday. You may use Ativan 1 tablet under the tongue every 6 hours as needed if the hiccups return. This medication will make you tired. DO NOT DRINK OR DRIVE WHILE ON THIS MEDICATION. Continue your medications as previously prescribed. You are welcome to return to the emergency department anytime with new, worsening, or concerning symptoms. Problem Qualifiers
== END 2017-07-18 17:50 | disposition home or self-care (01) ==
LOC: C.EDB 14:45 → C.EDA 17:50
DX: R06.6 Hiccough (principal); R06.02 Shortness of breath; M48.061 Spinal stenosis, lumbar region without neurogenic claudication; Z79.82 Long term (current) use of aspirin; Z98.890 Other specified postprocedural states